=== PATIENT | male | born 1930 | race Caucasian/White ===

== ENCOUNTER → 2018-08-27 | Outpatient (CLI) | payer OTHER ==
--- NOTE | 2018-08-27 10:34 | REP ---
PA and lateral chest: Comparison is 03/28/2017. There are no acute infiltrates. There are no pleural effusions. There are no lung masses, nodules or calcifications. Lung moore are clear and unchanged. Cardiac size is normal, unchanged. The noah, mediastinum, skeletal structures are unremarkable and unchanged. There is elevation of the right hemidiaphragm, likely eventration, unchanged. Impression: Eventration of the right hemidiaphragm, unchanged. Otherwise, negative PA and lateral chest Electronically Signed by Alfred Cardona MD 08/27/2018 10:25 A
== END ==
LOC: M SMT 09:03
PROVIDERS: ATTEND Internal Medicine Pulmonary Disease
DX: J64 Unspecified pneumoconiosis (principal)